=== PATIENT | male | born 1930 | race Caucasian/White ===

== ENCOUNTER 2017-09-03 07:14 | Emergency (ER) | payer OTHER, MEDICAID ==
[~2017-09-03] VITALS: Ht 165.1 cm; Wt 88.0 kg
[2017-09-03 10:30] VITALS: BP 144/87
== END 2017-09-03 10:34 | disposition home or self-care (01) ==
LOC: ER 07:56
DX: K62.5 Hemorrhage of anus and rectum (principal); I10 Essential (primary) hypertension; E78.00 Pure hypercholesterolemia, unspecified
CPT/HCPCS: 99283; Z7610

== ENCOUNTER 2019-07-02 09:05 | Inpatient (IN) | payer MEDICARE, MEDICAID ==
[~2019-07-02] VITALS: Ht 162.6 cm; Wt 92.5 kg
[~2019-07-02 09:05] MED LIST: ALBU18HF2 IH; AZIT500T3 PO
[2019-07-02 10:55] LABS: BASOPHILS % 0.6 % (0.0-2.0); EOSINOPHILS % 2.4 % (0.0-5.0); HEMATOCRIT. 39.6 % (42.0-52.0); HEMOGLOBIN. 13.4 g/dL (14.0-18.0); LYMPHOCYTES % 30.8 % (20.0-50.0); MEAN CORPUSCULAR HEMOGLOBIN 29.3 pg (28.0-32.0); MEAN CORPUSCULAR VOLUME 86.6 fL (80.0-94.0); MEAN PLATELET VOLUME 8.9 fl (7.4-10.4); MONOCYTES % 10.4 % (2.0-8.0); NEUTROPHILS % 55.8 % (40.0-76.0); PLATELET 181 x1000/uL (130-400); RED BLOOD CELL COUNT 4.57 mill/uL (4.7-6.1); RED CELL DISTRIBUTION WIDTH 15.6 % (11.6-14.6)
[2019-07-02 11:00] LABS: CHLORIDE 107 mEq/L (98-107)
[2019-07-02 11:07] LABS: PARTIAL THROMBOPLASTIN TIME 27.8 sec (23.4-31.0); PROTHROMBIN TIME 10.4 sec (9.6-11.0)
[2019-07-02] MEDS ORDERED: IOHEXOL-300 100 ML BOTTLE ONE (12:47)
[2019-07-02 19:06] LABS: HEMOGLOBIN 13.6 g/dL (14.0-18.0)
[2019-07-02 20:00] VITALS: BP 112/49
[2019-07-02 22:00] VITALS: BP 112/49
[2019-07-02] MEDS ORDERED: IPRATROPIUM/ALBUTEROL 0.5-3(2.5)MG/3ML NEB HHN PRN (22:00)
[2019-07-02] MEDS ORDERED: DOCUSATE SODIUM 100MG CAPSULE PO PRN (22:00)
[2019-07-02] MEDS ORDERED: ACETAMINOPHEN 325MG TABLET PO PRN (22:00)
[2019-07-02] MEDS ORDERED: CLONIDINE 0.1MG TABLET PO PRN (22:00)
[2019-07-02] MEDS ORDERED: LORAZEPAM 0.5MG TABLET PO PRN (22:00)
[2019-07-02] MEDS ORDERED: ONDANSETRON HCL 4MG/2ML INJ IV PRN (22:00)
[2019-07-03] VITALS: BP 102/47
[2019-07-03] MEDS: SODIUM CHLORIDE 0.9% 1,000 ML IV SCH ×2 (00:44→14:01)
[2019-07-03 04:00] VITALS: BP 115/64
[2019-07-03] MEDS: HYDROCODONE/ACETAMINOPHEN 5/325MG TABLET PO PRN ×2 (06:40→14:00)
[2019-07-03 06:45] LABS: BASOPHILS % 0.6 % (0.0-2.0); EOSINOPHILS % 3.9 % (0.0-5.0); HEMATOCRIT. 41.5 % (42.0-52.0); HEMOGLOBIN. 13.9 g/dL (14.0-18.0); MEAN CORPUSCULAR HEMOGLOBIN 28.7 pg (28.0-32.0); MEAN PLATELET VOLUME 9.1 fl (7.4-10.4); MONOCYTES % 8.3 % (2.0-8.0); NEUTROPHILS % 61.2 % (40.0-76.0); PLATELET 200 x1000/uL (130-400); RED BLOOD CELL COUNT 4.83 mill/uL (4.7-6.1); RED CELL DISTRIBUTION WIDTH 15.2 % (11.6-14.6)
[2019-07-03 07:30] LABS: CHLORIDE 108 mEq/L (98-107)
[2019-07-03 07:37] LABS: LDL CHOLESTEROL 94 mg/dL (5-100)
[2019-07-03 07:39] LABS: HDL CHOLESTEROL 44 mg/dL (40-59)
[2019-07-03 08:00] VITALS: BP 113/56
[2019-07-03 12:00] VITALS: BP 116/57
[2019-07-03 15:42] VITALS: BP 123/60
[2019-07-03 16:00] VITALS: BP 123/60
== END 2019-07-03 16:11 | disposition home or self-care (01) | DRG 393 ==
LOC: ER 09:05 → 6EST 13:05 → ENRESERV 19:56
PROVIDERS: ADMIT Internal Medicine; ATTEND Internal Medicine
DX: K64.9 Unspecified hemorrhoids (principal); K57.31 Diverticulosis of large intestine without perforation or abscess with bleeding; E78.00 Pure hypercholesterolemia, unspecified; D64.9 Anemia, unspecified; E78.5 Hyperlipidemia, unspecified; I10 Essential (primary) hypertension; K40.20 Bilateral inguinal hernia, without obstruction or gangrene, not specified as recurrent; K76.0 Fatty (change of) liver, not elsewhere classified; N40.0 Benign prostatic hyperplasia without lower urinary tract symptoms; Z87.442 Personal history of urinary calculi; Z79.899 Other long term (current) drug therapy
CPT/HCPCS: 36415; 74177; 80061; 83036; 83605; 84153; 85014; 85018; 86850; 86900; 93005; 99285; Q9967; G0103

== ENCOUNTER 2019-11-10 13:25 | Emergency (ER) | payer MEDICARE, MEDICAID ==
[~2019-11-10] VITALS: Ht 165.1 cm; Wt 99.0 kg
[2019-11-10] MEDS ORDERED: KETOROLAC 60MG/2ML VIAL IM ONE (16:30)
[2019-11-10 17:02] LABS: BASOPHILS % 0.8 % (0.0-2.0); EOSINOPHILS % 3.2 % (0.0-5.0); HEMATOCRIT. 45.3 % (42.0-52.0); HEMOGLOBIN. 15.2 g/dL (14.0-18.0); LYMPHOCYTES % 26.6 % (20.0-50.0); MEAN CORPUSCULAR HEMOGLOBIN 29.3 pg (28.0-32.0); MEAN PLATELET VOLUME 9.3 fl (7.4-10.4); MONOCYTES % 10.7 % (2.0-8.0); NEUTROPHILS % 58.7 % (40.0-76.0); PLATELET 202 x1000/uL (130-400); RED CELL DISTRIBUTION WIDTH 15.1 % (11.6-14.6)
[2019-11-10 17:08] LABS: CHLORIDE 109 mEq/L (98-107)
[2019-11-10 17:10] LABS: PARTIAL THROMBOPLASTIN TIME 28.7 sec (23.4-31.0)
[2019-11-10 19:16] VITALS: BP 138/75
== END 2019-11-10 19:18 | disposition home or self-care (01) ==
LOC: ER 14:46
DX: L03.115 Cellulitis of right lower limb (principal); M79.604 Pain in right leg; I10 Essential (primary) hypertension
CPT/HCPCS: 36415; 80053; 85025; 85610; 85730; 93971; 96372; 99283; J1885